=== PATIENT | female | born 1995 | race Hispanic/Latino ===

== ENCOUNTER 2016-11-01 21:47 | Emergency (ER) | payer OTHER ==
[~2016-11-01] VITALS: Ht 167.6 cm; Wt 83.0 kg
[~2016-11-01 21:47] MED LIST: ZOFRAN ODT4 M1 PO
[2016-11-01 21:52] VITALS: BP 126/75
[2016-11-01] MEDS ORDERED: AMOXICILLIN875 M1 PO (22:31)
--- NOTE | 2016-11-01 22:31 | ED THROAT/DENTAL COMPLAINT ---
History of Present Illness General Chief Complaint: Sore Throat, Dental Pain Stated Complaint: SORE THROAT X3 DAYS Source: patient Exam Limitations: no limitations Vital Signs & Intake/Output Vital Signs & Intake/Output Vital Signs Date Time Temp Pulse Resp B/P Pulse O2 O2 Flow FiO2 Ox Delivery Rate 11/01 2152 98.1 88 18 126/75 97 Room Air ED Intake and Output 04 0000 04 1200 Intake Total 0 Output Total Balance 0 Intake, Oral 0 Patient 183 lb Weight Allergies Coded Allergies: No Known Allergies (05/26/16) Reconcile Medications Amoxicillin 875 MG TABLET 1 TAB PO BID pharyngitis Ondansetron (Zofran Odt) 4 MG TAB.RAPDIS 1 TAB PO Q6 PRN NAUSEA Triage Note: PT TO TRIAGE WITH C/O SORE THROAT x3DAYS. VSS, PT AFEBRILE. STREP SWABS OBTAINED AND SENT TO LAB. Triage Nurses Notes Reviewed? yes Onset: Abrupt Duration: day(s): (few), constant, continues in ED Timing: recent history Injury Environment: home Severity: mild, moderate No Modifying Factors: none : No Patient currently breastfeeds: No HPI: 21-year-old female comes into emergency room for further evaluation sore throat is been going on for the past couple days. Her son was diagnosed with a positive strep throat operations expert's office. She reports some pain to her neck. Mild cough. Hurts to swallow. Denies any other associated symptoms. (CARI LEWIS) Past History Travel History Traveled to [place] past 21 day No Medical History Any Pertinent Medical History? none Surgical History Surgical History: none Psychosocial History What is your primary language B[place]ian Tobacco Use: Never used Family History Hx Contributory? No (CARI LEWIS) Review of Systems Review of Systems Constitutional: Reports: no symptoms. EENTM: Reports: see HPI. Respiratory: Reports: see HPI. Cardiovascular: Reports: no symptoms. GI: Reports: no symptoms. Genitourinary: Reports: no symptoms. Musculoskeletal: Reports: no symptoms. Skin: Reports: no symptoms. Neurological/Psychological: Reports: no symptoms. Hematologic/Endocrine: Reports: no symptoms. Immunologic/Allergic: Reports: no symptoms. All Other Systems: Reviewed and Negative (CARI LEWIS) Physical Exam Physical Exam General Appearance: well developed/nourished, no apparent distress, alert Head: atraumatic, normal appearance Eyes: Bilateral: normal appearance, EOMI. Ears: Bilateral: canal normal. Nose: normal inspection Mouth/Throat: pharyngeal erythema,, no tonsillar exudates, Neck: lymphadenopathy (R), lymphadenopathy (L) Cardiovascular/Respiratory: no respiratory distress Back: normal inspection Neurologic/Psych: awake, alert, oriented x 3, normal gait Skin: intact, normal color Core Measures ACS in differential dx? No Severe Sepsis Present: No Septic Shock Present: No (CARI LEWIS) Progress Differential Diagnosis: aspirated tooth, carious tooth, epiglottitis, Ludwigs angina, meningitis, odontogenic abscess, rajesh-tonsillar abscess, pharyngeal for. body, stomatitis/gingivitis, strep pharyngitis, tooth fracture Plan of Care: Orders Procedure Date/time Status THROAT CULTURE W/QUICK STREP 11/01 2150 Active Comments: 11/01/2016 10:43:06 PM Due to positive strep exposure with her son patient was started on amoxicillin. Rest. Drink plenty of fluids. Return if any other concerns. (CARI LEWSI) Departure Departure Disposition: HOME OR SELF CARE Condition: Stable Clinical Impression Primary Impression: Pharyngitis Referrals: JILLIAN VANESSA,PATTI Haile (PCP/Family) Additional Instructions: Take amoxicillin as prescribed. Take Motrin as needed for pain. Rest. Gargle with warm salt water. Return if any other concerns worsening symptoms. Please go over all results of today's visit with your primary care doctor. Contact your primary care doctor to let them know you were here in the emergency room. There may be nonspecific findings which may not be related to your visit today here in the emergency room but may require further evaluation and chronic monitoring by your primary care doctor. If you had a laceration today the chance of foreign body always remains. You should follow-up with your primary care doctor for recheck in 3-5 days for a wound check. If you had an x-ray done there is a chance that a fracture could have been missed on initial read and you should follow-up with your primary care doctor for repeat x-rays if symptoms persist. If your blood pressure was elevated here in the emergency room please have rechecked by her primary care doctor within the next 48 hours by your primary care doctor. If you were prescribed a narcotic here in the emergency room or any type of controlled substances you're not allowed to drive while taking this medication or operate any type of heavy machinery. Narcotics can make you feel lightheaded dizziness nausea and can cause constipation. You may need to excelsior picker a stool softener. Thank you for choosing [facility] emergency room. Please return to the emergency room immediately if you have any other concerns worsening of symptoms. Departure Forms: Customer Survey General Discharge Information Prescriptions: Current Visit Scripts Amoxicillin 1 TAB PO BID #20 TAB (CARI LEWIS) PA/TRIMMER HELPER Co-Sign Statement Statement: ED Attending supervision documentation- [] I saw and evaluated the patient. I have also reviewed all the pertinent lab results and diagnostic results. I agree with the findings and the plan of care as documented in the PA's/TRIMMER HELPER's documentation. [x] I have reviewed the ED Record and agree with the PA's/TRIMMER HELPER's documentation. [] Additions or exceptions (if any) to the PAs/TRIMMER HELPER's note and plan are summarized below: [] (IRENE MCGHEE,JORGITO Tubbs)
== END 2016-11-01 22:43 ==
LOC: ERH 21:47
DX: J02.9 Acute pharyngitis, unspecified (principal)